=== PATIENT | female | born 1930 | race Caucasian/White ===

== ENCOUNTER 2021-05-29 18:46 | Emergency (ER) | payer OTHER, BC, SELFPAY ==
[~2021-05-29] VITALS: Ht 157.5 cm; Wt 54.4 kg
--- NOTE | 2021-05-29 19:35 | NUR ---
Patient to ER bed 04 to gown for evaluation. Side rails up. Report given PARKER Hammer
[2021-05-29] MEDS ORDERED: KETOROLAC TROMETHAMINE 60 MG/2 ML VIAL IM ONE (19:45)
--- NOTE | 2021-05-29 19:50 | NUR ---
PATIENT A/OX4. PATIENT LYING IN BED WITH EYES OPEN, CHEST RISE AND FALL SYMMETRICAL, NO C/O PAIN OR S/S OR DISTRESS. BED IN LOW AND LOCKED POSITION.
[2021-05-29 20:00] VITALS: BP_SYST 160
[2021-05-29] MEDS ORDERED: ACET-2634 PO (20:34)
--- NOTE | 2021-05-29 20:36 | NUR ---
PATIENT AND PATIENT'S VERBALIZED UNDERSTANDING OF AFTERCARE INSTRUTIONS. PATIENT LEFT WITH PATIENT'S , ALL BELONGINGS AND ALL AFTERCARE INSTRUCTIONS. PATIENT WALKS WITH STRONG GAIT.
[2021-05-29 21:24] VITALS: BP_SYST 135
== END 2021-05-29 21:24 | disposition home or self-care (01) ==
LOC: SED 18:46
DX: S43.402A Unspecified sprain of left shoulder joint, initial encounter (principal); I48.91 Unspecified atrial fibrillation; W19.XXXA Unspecified fall, initial encounter; Y92.9 Unspecified place or not applicable; Y93.9 Activity, unspecified; Y99.9 Unspecified external cause status; Z79.01 Long term (current) use of anticoagulants
CPT/HCPCS: 29105; 73030; 96372; 99283; J1885